=== PATIENT | female | born 1975 | race Caucasian/White ===

== ENCOUNTER 2023-03-01 09:49 | Emergency (ER) | payer BC ==
[2023-03-01] MEDS ORDERED: Sodium Chloride 0.9% 2.5 ML Syringe FLUSH PRN (10:46)
[2023-03-01] MEDS ORDERED: Sodium Chloride 0.9% 10 ML Syringe FLUSH PRN (10:46)
[2023-03-01 11:26] LABS: CARBON DIOXIDE,CO2 25.1 mmol/L (21.0-32.0); POTASSIUM,K 3.8 mmol/L (3.5-5.1)
[2023-03-01 11:42] LABS: CORONAVIRUS COVID-19 NAA NEGATIVE (NEGATIVE); INFLUENZA A NAA NEGATIVE (NEGATIVE); INFLUENZA B NAA NEGATIVE (NEGATIVE); RESPIRATORY SYNCYTIAL VIR NAA NEGATIVE (NEGATIVE)
== END 2023-03-01 13:13 | disposition home or self-care (01) ==
LOC: MW.ED 09:49
DX: R21 Rash and other nonspecific skin eruption (principal); M25.50 Pain in unspecified joint; N18.30 Chronic kidney disease, stage 3 unspecified; Z20.822 Contact with and (suspected) exposure to COVID-19; Z79.899 Other long term (current) drug therapy
CPT/HCPCS: 0241U; 36415; 80053; 81001; 83605; 83690; 85025; 85610; 86592; 99283; J3490

== ENCOUNTER 2023-06-27 14:10 | Emergency (ER) | payer BC ==
[2023-06-27] MEDS ORDERED: Sodium Chloride 0.9% 1,000 ML IV ONE ×2 (14:23→16:44)
[2023-06-27] MEDS ORDERED: Promethazine 25 MG/ML SDV IM ONE (14:24)
[2023-06-27 14:37] LABS: HEMATOCRIT 43.9 % (36.0-46.0); HEMOGLOBIN 14.4 g/dL (12.0-16.0); MEAN CORPUSCULAR HEMOGLOBIN 31.2 pg (27.0-32.0); MEAN CORPUSCULAR HGB CONC 32.8 g/dL (31.0-37.0); NRBC ABSOLUTE 0 K/uL; PLATELET COUNT,PLT 339 K/uL (150-400); RED BLOOD CELL COUNT 4.62 M/uL (4.30-5.90); WHITE BLOOD CELL COUNT,WBC 26.66 K/uL (4.0-11.0)
[2023-06-27 14:54] LABS: A/G RATIO 1.1 (0.9-1.6); ALBUMIN 4.8 g/dL (3.4-5.0); BILIRUBIN TOTAL 0.6 mg/dL (0.2-1.0); CALCIUM 10.2 mg/dL (8.5-10.1); CREATININE 2.2 mg/dL (0.6-1.0); EST CRCL DRUG DOSING (CG) 28.64 mL/min; PROTEIN TOTAL,TP 9.3 g/dL (6.4-8.2)
[2023-06-27 15:16] LABS: BAND ABSOLUTE MAN 2.4; BAND PERCENT MAN 9 %; LYMPHOCYTES ABSOLUTE MAN 1.9 (0.6-2.4); LYMPHOCYTES PERCENT MAN 7 % (16.0-40.0); MONOCYTES ABSOLUTE MAN 1.3 (0.0-0.8); MONOCYTES PERCENT MAN 5 % (0.0-15.0); SEG NEUTROPHILS ABSOLUTE MAN 21.1 (1.4-5.7); SEG NEUTROPHILS PERCENT MAN 79 % (48.0-80.0)
[2023-06-27 16:35] LABS: LACTIC ACID 2.8 mmol/L (0.4-2.0)
[2023-06-27] MEDS ORDERED: Piperacillin/Tazobactam 3.375 GM in Sodium Chloride 0.9% 100 ML IV ONE (16:45)
[2023-06-27 17:00] LABS: INR 0.97 (0.86-1.11)
[2023-06-27 18:05] LABS: APPEARANCE,URINE SLT CLOUDY; BILIRUBIN,URINE NEGATIVE (NEGATIVE); COLOR,URINE YELLOW; GLUCOSE,URINE NEGATIVE (NEGATIVE); KETONES,URINE NEGATIVE (NEGATIVE); LEUKOCYTE ESTERASE,URINE NEGATIVE (NEGATIVE); NITRITE,URINE POSITIVE (NEGATIVE); OCCULT BLOOD,URINE TRACE-INTACT (NEGATIVE); PH,URINE 5.5 (5.0-8.0); PROTEIN,URINE NEGATIVE (NEGATIVE); UROBILINOGEN,URINE 0.2 EU/dL (<2.0)
[2023-06-27 18:17] LABS: AMPHETAMINES SCREEN, URINE NEGATIVE (CUTOFF=500); BARBITURATE SCREEN,URINE NEGATIVE (CUTOFF=200); BENZODIAZEPINES SCREEN,URINE PRESUMPTIVE POSITIVE (CUTOFF=150); BUPRENORPHINE SCREEN,URINE NEGATIVE (CUTOFF=10); METHADONE SCREEN, URINE NEGATIVE (CUTOFF=200); METHAMPHETAMINES SCREEN, URINE NEGATIVE (CUTOFF=500); OXYCODONE SCREEN,URINE NEGATIVE (CUT0FF=100); PCP SCREEN,URINE NEGATIVE (CUTOFF=25); PROPOXYPHENE SCREEN,URINE NEGATIVE (CUTOFF=300); THC SCREEN,URINE 20 NG/ML NEGATIVE (CUTOFF=50)
[2023-06-27 18:20] LABS: BACTERIA,URINE 4+ (NEGATIVE); EPITHELIAL CELLS,URINE FEW (NONE-FEW); WBC,URINE 0-2 (0-5/HPF)
== END 2023-06-27 19:58 | disposition left against medical advice (07) ==
LOC: MW.ED 14:10
DX: A41.9 Sepsis, unspecified organism (principal); R11.2 Nausea with vomiting, unspecified; N39.0 Urinary tract infection, site not specified; N18.30 Chronic kidney disease, stage 3 unspecified; Z86.16 Personal history of COVID-19
CPT/HCPCS: 36415; 74176; 80053; 80305; 81001; 83605; 83690; 85025; 85610; 87040; 87086; 96361; 96365; 96372; 99284; J2543; J2550; J3490; J7030

== ENCOUNTER 2024-06-02 08:53 | Emergency (ER) | payer BC ==
[2024-06-02] MEDS: Ketorolac 30 MG/ML SDV IM ONE (10:23)
[2024-06-02] MEDS: Diphtheria,Pertussis(Acell),Tetanus Vaccine 0.5 ML Syringe IM ONE (10:23)
== END 2024-06-02 11:03 | disposition home or self-care (01) ==
LOC: MW.ED 08:53
DX: T14.8XXA Other injury of unspecified body region, initial encounter (principal); S50.812A Abrasion of left forearm, initial encounter; S50.312A Abrasion of left elbow, initial encounter; Z75.8 Other problems related to medical facilities and other health care; Z86.16 Personal history of COVID-19; Z23 Encounter for immunization; W22.8XXA Striking against or struck by other objects, initial encounter
CPT/HCPCS: 73090; 73110; 90471; 90715; 96372; 99283; J1885

== ENCOUNTER 2025-09-07 17:17 | Emergency (ER) | payer BC ==
[2025-09-07] MEDS ORDERED: Sodium Chloride 0.9% 10 ML Syringe FLUSH PRN (17:21)
[2025-09-07] MEDS ORDERED: Sodium Chloride 0.9% 2.5 ML Syringe FLUSH PRN (17:21)
[2025-09-07 17:29] LABS: APPEARANCE,URINE CLEAR; GLUCOSE,URINE NEGATIVE (NEGATIVE); OCCULT BLOOD,URINE NEGATIVE (NEGATIVE)
[2025-09-07 17:39] LABS: SQUAMOUS EPITHELIAL CELLS,UR FEW
[2025-09-07 17:58] LABS: BASOPHILS ABSOLUTE AUTO 0.04 K/uL (0.00-0.20); BASOPHILS PERCENT AUTO 0.4 % (0.0-1.0); EOSINOPHILS ABSOLUTE AUTO 0.10 K/uL (0.00-0.45); EOSINOPHILS PERCENT AUTO 1.1 % (0.0-6.0); IMMATURE GRAN ABSOLUTE AUTO 0.05 K/uL (0.00-0.05); IMMATURE GRAN PERCENT AUTO 0.5 % (0.0-0.4); LYMPHOCYTES ABSOLUTE AUTO 1.49 K/uL (1.00-4.80); LYMPHOCYTES PERCENT AUTO 15.9 % (24.0-44.0); MEAN PLATELET VOLUME 10.6 fL (9.4-12.3); MONOCYTES ABSOLUTE AUTO 0.86 K/uL (0.00-0.80); MONOCYTES PERCENT AUTO 9.2 % (0.0-8.0); NEUTROPHILS ABSOLUTE AUTO 6.85 K/uL (1.80-7.70); NEUTROPHILS PERCENT AUTO 72.9 % (41.0-71.0); NRBC ABSOLUTE 0.00 K/uL (0.00-0.02); NRBC PERCENT 0.0 /100WBC (0.0-0.2); PLATELET COUNT,PLT 184 K/uL (150-400); RED BLOOD CELL COUNT 3.65 M/uL (4.10-5.30); WHITE BLOOD CELL COUNT,WBC 9.39 K/uL (3.9-11.3)
[2025-09-07 18:25] LABS: A/G RATIO 1.3 (0.9-1.6); ALANINE AMINOTRANSFERASE,ALT 151.0 IU/L (14-63); ASPARTATE AMNIOTRANSFERASE,AST 39.0 IU/L (15-37); BILIRUBIN TOTAL 0.5 mg/dL (0.2-1.0); BLOOD UREA NITROGEN,BUN 10.0 mg/dL (7.0-18.0); CARBON DIOXIDE,CO2 22.6 mmol/L (21.0-32.0); CHLORIDE,CL 109.0 mmol/L (98-107); CREATININE 1.3 mg/dL (0.6-1.0); EST CRCL DRUG DOSING (CG) 40.04 mL/min; ESTIMATED GFR 49.0 mL/min (>60); GLUCOSE RANDOM 132.0 mg/dL (74-106); POTASSIUM,K 2.7 mmol/L (3.5-5.1); PROTEIN TOTAL,TP 6.2 g/dL (6.4-8.2); SODIUM,NA 145.0 mmol/L (136-145)
[2025-09-07 18:30] LABS: LACTIC ACID 1.4 mmol/L (0.4-2.0)
[2025-09-07] MEDS: Iopamidol 755 Mg/ML 100 ML Bottle IVPUSH ONE (18:42)
[2025-09-07] MEDS: Potassium Chloride 20 MEQ Tab.ER PO ONE (19:36)
[2025-09-07] MEDS: Calcium Gluconate 10% 1 GM/10 ML SDV IVPUSH ONE (19:37)
== END 2025-09-07 19:44 | disposition home or self-care (01) ==
LOC: MW.ED 17:17
DX: R10.12 Left upper quadrant pain (principal); R19.7 Diarrhea, unspecified; N39.0 Urinary tract infection, site not specified; Z87.891 Personal history of nicotine dependence; Z79.899 Other long term (current) drug therapy; Z75.3 Unavailability and inaccessibility of health-care facilities
CPT/HCPCS: 36415; 74177; 80053; 81001; 83605; 83690; 83735; 85025; 96360; 96361; 99284; A9270; J7030; Q9967